=== PATIENT | female | born 1965 | race Two or more races ===

== ENCOUNTER 2024-05-11 19:25 | Emergency (ER) | payer MEDICAID, SELFPAY ==
--- NOTE | 2024-05-11 19:30 | EKG_ITS ---
[facility] Test Date: 2024-05-11 Pat Name: MARTHA AGGARWAL Department: Room: - Gender: Female [employer] Operator: : 1965 Requested By: Saeid Purcell Order Number: [id number] Reading MD: Saeid Purcell Measurements Intervals [place] Rate: 83 P: 23 [place]: 162 QRS: 28 QRSD: 86 T: 11 QT: 360 QTc: 423 Interpretive Statements SINUS RHYTHM NONSPECIFIC T-WAVE ABNORMALITY Compared to ECG 03/06/2022 11:10:00 T-wave abnormality now present /store/S0/[id number].pdf
[2024-05-11 20:05] VITALS: BP 192/92; PULSE 80; RESP 18; TEMP 36.9; O2SAT 98
--- NOTE | 2024-05-11 20:22 | XR_ITS ---
Examination: PA chest single view Technique: Upright PA chest single view Exam date and time: May 2024 at 2058 hrs. Indications: Onset chest pain today. Findings: Mild prominence left ventricle No pneumonia or pulmonary edema The osseous structures are intact Impression: No pneumonia or pulmonary edema
--- NOTE | 2024-05-11 20:23 | EDRME_ITS ---
Rapid Medical Screening Exam [facility] Arrival date/time: 05/11/24 19:25 59F with history of HTN and DM presents to ED with 2 days of chest tightness and L arm pain. Daughter states patient likely has undiagnosed anxiety, but just wanted to be evaluated in ED jst in case. Chief Complaint: General Adult/Misc Complain Vital signs: Vital Signs Temperature 98.4 F 05/11/24 20:05 Pulse Rate 80 05/11/24 20:05 Respiratory Rate 18 05/11/24 20:05 Blood Pressure 192/92 H 05/11/24 20:05 Pulse Oximetry (%) 98 05/11/24 20:05
[2024-05-11 20:59] LABS: Basophils # (Auto) 0.1 Thou/mm3 (0.0-0.2); Basophils % (Auto) 1 % (0-2.5); Eosinophils # (Auto) 0.3 Thou/mm3 (0.0-0.5); Eosinophils % (Auto) 3 % (0-10); Hematocrit 38.7 % (36.0-46.0); Hemoglobin 13.1 g/dL (12.0-16.0); Immature Granulocytes % (Auto) 0 % (0-0); Immature Granulocytes Auto 0.02 Thou/mm3 (0.00-0.00); Lymphocytes # (Auto) 2.9 Thou/mm3 (1.0-4.8); Lymphocytes % (Auto) 28 % (10-50); Mean Corpuscular HGB Conc 33.9 g/dl (31.0-37.0); Mean Corpuscular Hemoglobin 29.5 pg (25.0-35.0); Mean Corpuscular Volume 87 fL (80-100); Monocytes # (Auto) 0.6 Thou/mm3 (0.0-0.8); Monocytes % (Auto) 6 % (0-12); Neutrophils # (Auto) 6.3 Thou/mm3 (1.8-7.7); Neutrophils % (Auto) 62 % (37-80); Nucleated Red Blood Cell % 0 /100 WBC (0); Platelet Count 222 Thou/mm3 (140-440); RDW Standard Deviation 44.4 fL (36.4-46.3); Red Blood Count 4.44 Miln/mm3 (4.00-5.20); White Blood Count 10.1 Thou/mm3 (3.6-11.0)
[2024-05-11 21:13] LABS: Alanine Aminotransferase 31 U/L (10-49); Albumin, Serum 4.8 gm/dL (3.5-5.0); Albumin/Globulin Ratio 1.5 (1.2-2.2); Alkaline Phosphatase 119 U/L (46-116); Anion Gap 10 (7-16); Aspartate Amino Transferase 32 U/L (0-34); BUN/Creatinine Ratio 24 Ratio (12-20); Bilirubin,Total 0.4 mg/dL (0.3-1.2); Blood Urea Nitrogen 17 mg/dL (9-23); Calcium 9.9 mg/dL (8.3-10.6); Calcium (Corrected) 9.9 mg/dL (8.5-10.1); Chloride 105 mMol/L (98-107); Creatinine (Component) 0.7 mg/dL (0.6-1.3); Globulin 3.3 gm/dL (2.3-3.5); Glucose 242 mg/dL (74-106); Osmolality,Calculated 290 (275-295); Potassium 3.9 mMol/L (3.4-5.1); Sodium 141 mMol/L (136-145); Total Protein 8.1 gm/dL (5.7-8.2); Troponin I < 0.002 ng/mL (0.0-0.045); eGFR > 60 See Note
[2024-05-11 22:00] VITALS: BP 192/92; PULSE 80
[2024-05-11] MEDS: NIFEdipine 10 MG CAPSULE 20 MG PO (22:00)
[2024-05-11 22:09] VITALS: BP 171/83; PULSE 84; RESP 16; TEMP 36.4; O2SAT 97
--- NOTE | 2024-05-11 22:14 | PD.EDADULT ---
ED General RME/HPI General Chief complaint: General Adult/Misc Complain Stated complaint: LEFT ARM PAIN SINCE YESTERDAY Time Seen by Provider: 05/11/24 21:44 Arrival date/time: 05/11/24 19:25 RME / HPI RME / HPI narrative: 59F with history of HTN and DM presents to ED with 2 days of chest tightness and L arm pain. Also complained of neck pain. Described as dull ache, severity moderate, for several days now. Pain radiates to the left arm and chest. Daughter states patient likely has undiagnosed anxiety, but just wanted to be evaluated in ED jst in case. Related Data Home Medications ?Medication ?Instructions ?Recorded ?Confirmed amlodipine 5 mg tablet 5 mg PO DAILY 04/18/18 10/03/18 losartan 100 mg tablet 100 mg PO QDAY 04/18/18 10/03/18 Previous Rx's ?Medication ?Instructions ?Recorded metformin 500 mg tablet See Rx Instructions .Route 04/18/18 .COMPLEX #10 tabs ferrous sulfate 325 mg (65 mg 325 mg PO BID #60 tabs 10/04/18 iron) tablet,delayed release dicyclomine 20 mg tablet 20 mg PO BID #14 tabs 03/06/22 simethicone 80 mg chewable tablet 80 mg PO BID #14 tabs 03/06/22 naproxen 500 mg tablet (Naprosyn) 500 mg PO BID PRN pain #30 tabs 05/11/24 Allergies Allergy/AdvReac Type Severity Reaction Status Date / Time No Known Allergies Allergy Verified 10/03/18 23:40 Review of Systems Review of Systems Narrative Review of Systems: Review of system reviewed and within normal limits except mentioned in HPI ED Exam Narrative Physical exam: VITAL SIGNS: Reviewed. GENERAL APPEARANCE: Alert and interactive, follows commands, no acute distress, HEAD AND FACE: Non-traumatic. ENT: PERRL, pink conjunctivitis, eyelid no trauma, Mucous membrane moist. NECK: Supple, posterior neck tenderness, no nuchal rigidity. CHEST: No tenderness, no crepitus, no paradoxical movement, no retractions. LUNGS: Clear, well ventilated, symmetric, no rales, no wheezing, no ronchi, no stridor, good breath sounds bilaterally. HEART: Regular rate, regular rhythm, no murmur, no gallops. ABDOMEN: Soft, positive bowel sounds, nondistended, no guarding, nontender, no rebound, no masses, RECTAL: Deferred. GENITAL: Deferred. NEUROLOGICAL: Gross motor function intact sensory function intact, Appropriate for age. MUSCULOSKELETAL: low back nontender, full range of motion. EXTREMITIES: Nontender, full range of motion. SKIN: Color pink, dry, no rash, no lacerations, no abrasions, no contusions. LYMPHATICS: Deferred. Course Quality Measures none Orders Category Date Time Status EKG (ED ONLY) *Do not use* NOW Care 05/11/24 19:30 Completed EKG (ED Only) Stat Exams 05/11/24 19:30 Draft XR chest 1V portable Stat Exams 05/11/24 20:22 Completed CBC Stat Lab 05/11/24 20:40 Completed Comprehensive Metabolic Panel Stat Lab 05/11/24 20:40 Completed Troponin I Stat Lab 05/11/24 20:40 Completed NIFEdipine [Procardia] Med 05/11/24 21:44 Discontinued 20 mg PO X1 ONE Vital Signs Vital signs: Vital Signs Temperature 98.4 F 05/11/24 20:05 Pulse Rate 80 05/11/24 20:05 Respiratory Rate 18 05/11/24 20:05 Blood Pressure 192/92 H 05/11/24 20:05 Pulse Oximetry (%) 98 05/11/24 20:05 [facility] Patient data External records reviewed:: None Clinical information provided by:: none Social determinants that could affect healthcare access:: none Patient has the following chronic illnesses:: Hypertension diabetes mellitus How is presenting disease/condition affected by chronic disease/condition?: exacerbated by Evaluation data The following diagnostics were reviewed and interpreted by me:: lab results, radiology exam(s) and EKG tracing(s) Lab and/or radiology exams considered but not ordered:: None Interpretation Summary: See results in MDM Medications Medications considered but not ordered:: None Medication administrations:: Medication Administration History Discontinued Medications Nifedipine (Nifedipine 10 Mg Capsule) 20 mg PO X1 ONE Stop: 05/11/24 21:45 Last Admin: 05/11/24 22:00 Dose: 20 mg Documented By: Procardia Consultations Consultation(s) initiated? (list below): No Diagnosis Differential Diagnosis ED Complaint MDM: Neck pain, elevated blood pressure, radiculopathy, chest pain Most likely diagnosis given after review of the tests above:: Elevated blood pressure, neck pain Admission Indicated Admission indicated?: not indicated Explain why admission is indicated or not indicated:: Stable Admission Request Was there a request for admission?: No Disposition Plan Disposition Plan: Discharge Discharge Attestation Discharge Attestation: The patient and all family members were given an opportunity to ask questions and understood the discharge instructions. Discharge instructions specifically effects, indications for sooner follow up or return to the emergency department, and the expected course of current diagnosis. Patient condition: Stable Medical Decision Making MDM Narrative MDM Narrative: 59F with history of HTN and DM presents to ED with 2 days of chest tightness and L arm pain. Also complained of neck pain. Described as dull ache, severity moderate, for several days now. Pain radiates to the left arm and chest. Daughter states patient likely has undiagnosed anxiety, but just wanted to be evaluated in ED jst in case. Patient's work including troponin came back normal. EKG also came back normal sinus rhythm, ventricular rate of 63 bpm, no ST segment elevation or depression noted. Chest x-ray came back normal also. Patient's blood pressure was noted to be 171/83 prior to discharge. Patient appears nontoxic and hemodynamically stable. Patient discharged home and instructed to follow-up with primary care provider in 24 to 48 hours. Instructed to return to the emergency department immediately if worsening of symptoms Differential Diagnosis Differential Diagnosis: Neck pain, elevated blood pressure, radiculopathy, chest pain Lab Data 05/11/24 20:40 05/11/24 20:40 Labs: Lab Results 05/11/24 Range/Units 20:40 WBC 10.1 (3.6-11.0) Thou/mm3 RBC 4.44 (4.00-5.20) Miln/mm3 Hgb 13.1 (12.0-16.0) g/dL Hct 38.7 (36.0-46.0) % MCV 87 (80-100) fL MCH 29.5 (25.0-35.0) pg MCHC 33.9 (31.0-37.0) g/dl RDW Std Deviation 44.4 (36.4-46.3) fL Plt Count 222 (140-440) Thou/mm3 Neut % (Auto) 62 (37-80) % Lymph % (Auto) 28 (10-50) % [place] % (Auto) 6 (0-12) % Eos % (Auto) 3 (0-10) % Baso % (Auto) 1 (0-2.5) % Neut # (Auto) 6.3 (1.8-7.7) Thou/mm3 Lymph # (Auto) 2.9 (1.0-4.8) Thou/mm3 [place] # (Auto) 0.6 (0.0-0.8) Thou/mm3 Eos # (Auto) 0.3 (0.0-0.5) Thou/mm3 Baso # (Auto) 0.1 (0.0-0.2) Thou/mm3 Immature Gran # (Auto) 0.02 H (0.00-0.00) Thou/mm3 Absolute Nucleated RBC 0.00 (0.00-0.00) Thou/mm3 Immature Gran % 0 (0-0) % Nucleated RBC % 0 (0) /100 WBC Sodium 141 (136-145) mMol/L Potassium 3.9 (3.4-5.1) mMol/L Chloride 105 (98-107) mMol/L Carbon Dioxide 26.0 (20.0-31.0) mMol/L Anion Gap 10 (7-16) BUN 17 (9-23) mg/dL Creatinine 0.7 (0.6-1.3) mg/dL Estim Creat Clear Calc Not Performed. eGFR > 60 (60 - ) See Note BUN/Creatinine Ratio 24 H (12-20) Ratio Glucose 242 H (74-106) mg/dL Calculated Osmolality 290 (275-295) Calcium 9.9 (8.3-10.6) mg/dL Corrected Calcium 9.9 (8.5-10.1) mg/dL Total Bilirubin 0.4 (0.3-1.2) mg/dL AST 32 (0-34) U/L ALT 31 (10-49) U/L Alkaline Phosphatase 119 H (46-116) U/L Troponin I < 0.002 (0.0-0.045) ng/mL Total Protein 8.1 (5.7-8.2) gm/dL Albumin 4.8 (3.5-5.0) gm/dL Globulin 3.3 (2.3-3.5) gm/dL Albumin/Globulin Ratio 1.5 (1.2-2.2) Discharge Plan Plan Patient Disposition: HOME (Self Care) Disposition Comment: stable Prescriptions/Referrals Prescriptions/Med Rec: New naproxen [Naprosyn] 500 mg tablet 500 mg PO BID PRN (Reason: pain) Qty: 30 0RF No Action ferrous sulfate 325 mg (65 mg iron) tablet,delayed release (DR/EC) 325 mg PO BID Qty: 60 0RF amlodipine 5 mg Tablet 5 mg PO DAILY losartan 100 mg Tablet 100 mg PO QDAY metformin 500 mg tablet See Rx Instructions .ROUTE .COMPLEX Qty: 10 0RF Rx Instructions: 1tab, po, daily dicyclomine 20 mg tablet 20 mg PO BID Qty: 14 0RF simethicone 80 mg tablet,chewable 80 mg PO BID Qty: 14 0RF Problem List Clinical Impression: Neck pain Patient/Caregiver Discharge Instructions Discharge Activity: activity as tolerated Education Materials: ED Neck Pain Additional Instructions: Thank you for the opportunity for serving you today. You are stable for discharged . You are advised to: Follow-up with your PCP in 1 to 2 days Return to ED for worsening of symptoms Increase oral fluids Take medication as prescribed Print Language: Eritre[place] Stand Alone Forms: Jaida Award Info., Patient Portal Info Letter PA/PEDIATRIC NURSE PRACTITIONER Supervising Physician PA/PEDIATRIC NURSE PRACTITIONER Supervising Physician: MD Davey
[2024-05-11 22:35] VITALS: BP 134/72; PULSE 83
[2024-05-11 22:36] VITALS: BP 134/72; PULSE 83
== END 2024-05-11 22:37 | disposition home or self-care (01) ==
LOC: SERX 22:59
PROVIDERS: Physician Assistant; Emergency Provider Emergency Medicine
DX: M54.2 Cervicalgia (principal); R07.89 Other chest pain; M79.602 Pain in left arm; I10 Essential (primary) hypertension; E11.9 Type 2 diabetes mellitus without complications
CPT/HCPCS: 36415; 71045; 80053; 84484; 85025; 93005; 99283; A9270